=== PATIENT | male | born 1970 | race Caucasian/White ===

== ENCOUNTER 2024-07-31 08:30 | Emergency (ER) | payer OTHER ==
[~2024-07-31] VITALS: Ht 177.8 cm; Wt 74.5 kg
[2024-07-31] MEDS ORDERED: NS 1,000 ML IV SCH (09:00)
[2024-07-31 09:17] LABS: BASO # 0.02 K/mm3 (0.02-0.10); EOS # 0.18 K/mm3 (0.04-0.40); EOS % 2.3 % (0.0-4.0); HEMATOCRIT 48.1 % (42.0-52.0); HEMOGLOBIN 15.9 g/dL (13.5-18.0); LYMPH# 1.21 K/mm3 (1.50-4.00); MEAN CELL VOLUME 91 fl (78-100); MEAN CORPUSCULAR HEMOGLOBIN 30 pg (27-31); MEAN CORPUSCULAR HGB CONC 33 g/dL (33-37); MEAN PLATELET VOLUME 10.7 fl (7.4-10.4); MONO # 0.52 K/mm3 (0.20-0.80); NEU # 5.77 K/mm3 (1.40-6.50); PLATELET COUNT 182 K/mm3 (130-400); RED BLOOD COUNT 5.31 M/mm3 (4.20-5.60); RED CELL DISTRIBUTION WIDTH 12.3 % (11.5-14.5); WHITE BLOOD COUNT 7.7 K/mm3 (4.8-10.8)
[2024-07-31 09:28] LABS: SODIUM 140 mmol/L (136-145)
[2024-07-31 09:30] LABS: ALBUMIN 4.5 g/dL (3.5-5.0); GLUCOSE 107 mg/dL (75-110)
[2024-07-31 09:31] LABS: CALCIUM 9.5 mg/dL (8.3-10.5); TOTAL PROTEIN 7.8 g/dL (6.4-8.3)
[2024-07-31 09:34] LABS: CARBON DIOXIDE 25 mmol/L (22-29); TOTAL BILIRUBIN 0.9 mg/dL (0.2-1.2)
[2024-07-31 09:37] LABS: ALT/SGPT 26 U/L (0-55)
[2024-07-31 09:38] LABS: AST-SGOT 23 U/L (5-34)
[2024-07-31 09:40] LABS: ALCOHOL IN-HOUSE < 10 mg/dL (<10)
[2024-07-31 09:47] LABS: TROPONIN-I < 0.030 ng/mL (0.00-0.033)
[2024-07-31 10:26] VITALS: BP 131/88
[2024-07-31 11:07] LABS: URINE APPEARANCE CLOUDY (CLEAR); URINE COLOR YELLOW (YELLOW)
[2024-07-31 11:08] LABS: PH-URINE 8.5 (5.0 - 8.0); URINE BILIRUBIN NEGATIVE (NEGATIVE); URINE BLOOD NEGATIVE (NEGATIVE); URINE GLUCOSE NEGATIVE (NEGATIVE); URINE KETONE NEGATIVE (NEGATIVE); URINE LEUKOCYTE ESTERASE NEGATIVE (NEGATIVE); URINE MUCUS PRESENT (NOT PRESENT); URINE NITRATE NEGATIVE (NEGATIVE); URINE PROTEIN(semi-quant) 1+ (NEGATIVE)
== END 2024-07-31 10:40 | disposition home or self-care (01) ==
LOC: ED 08:30
PROVIDERS: Family Medicine
DX: S06.9X9A Unspecified intracranial injury with loss of consciousness of unspecified duration, initial encounter (principal); S00.01XA Abrasion of scalp, initial encounter; R55 Syncope and collapse; W19.XXXA Unspecified fall, initial encounter; Y92.89 Other specified places as the place of occurrence of the external cause; Y99.0 Civilian activity done for income or pay
CPT/HCPCS: J7030